=== PATIENT | female | born 1950 | race Caucasian/White ===

== ENCOUNTER 2017-04-10 06:12 | Inpatient (IN) | payer MEDICARE ==
[2017-04-07 12:25] LABS: BASOPHILS 0.6 %; BASOPHILS ABSOLUTE 0.05 10/3/uL (0.0-0.16); EOSINOPHILS 0.5 %; EOSINOPHILS ABSOLUTE 0.04 10/3/uL (0.0-0.53); HEMATOCRIT 39.4 % (36.0-48.0); IMMATURE GRANULOCYTES 0.1 %; IMMATURE GRANULOCYTES ABSOLUTE 0.01 10/3/uL (0.0-0.11); LYMPHOCYTES 44.3 %; LYMPHOCYTES ABSOLUTE 3.44 10/3/uL (0.67-4.30); MEAN CORPUSCULAR HEMOGLOB 30.4 pg (26.0-34.0); MEAN CORPUSCULAR VOLUME 92.1 fL (80-100); MEAN PLATELET VOLUME 10.3 fL (9.2-13.0); NEUTROPHILS 45.5 %; NEUTROPHILS ABSOLUTE 3.53 10/3/uL (2.02-8.40); PLATELET COUNT 323 10/3/uL (150-400); RBC DISTRIBUTION WIDTH 13.3 % (12.0-16.0); RED CELL COUNT 4.28 10/6/uL (4.0-5.6); WHITE BLOOD CELLS 7.8 10/3/uL (4.5-10.5)
[2017-04-07 12:27] LABS: MANUAL DIFF NO %
[2017-04-07 12:31] LABS: INTERNATIONAL NORMAL RATI 1.1 UNITS (-)
[2017-04-07 12:34] LABS: BUN (BLOOD UREA NITROGEN) 16 MG/DL (6-23); CALCIUM, SERUM 9.2 MG/DL (8.5-10.4); CHLORIDE, SERUM 107 MMOL/L (96-112); CREATININE 0.87 MG/DL (0.55-1.02); GFR AFRICAN AMERICAN 80 ML/MIN (>=60); GFR NON AFRICAN AMERICAN 69 ML/MIN (>=60); GLUCOSE, SERUM 82 MG/DL (60-99); SODIUM, SERUM 142 MMOL/L (135-148)
[2017-04-07 12:35] LABS: CO2 (CARBON DIOXIDE) 31 MMOL/L (24-34)
[2017-04-07 12:43] LABS: ASCORBIC ACID (UR NOT ORDER) NEG (NEG); BILIRUBIN, URINE NEGATIVE (NEG); KETONE, URINE NEGATIVE (NEG); LEUKOCYTE ESTERASE(NOT OR NEG (NEG); WBC (NOT ORDERED) (RFLEX) < 1 (0-5)
--- NOTE | ~2017-04-10 | OP ---
Record Of Operation [facility] [address] [facility] [place] [address] NAME: YORDAN PHILLIPS : 50 STATUS : ADM IN [facility]#: [id number] AGE: 67 ADM/REG DATE : 04/10/17 MR#: [id number] REPORT SERV DATE: 04/11/17 DICTATED BY: KEITH VIVAS DATE: 04/10/17 REPORT STATUS : Draft TRANSCRIBED BY: MODL DATE: 04/10/17 DATE OF PROCEDURE: 04/10/2017 SURGEON: Keith Vivas MD OPERATIVE DIRECTOR [employer]POR[employer] SALES: CHRISTOPHER Quispe COMPLICATIONS: None. ESTIMATED BLOOD LOSS: Less than 50 mL. DISPOSITION: Stable to recovery room. ANESTHESIA: General. PREOPERATIVE DIAGNOSES: 1. Left shoulder pain. 2. End-stage glenohumeral joint osteoarthritis, recalcitrant to conservative. POSTOPERATIVE DIAGNOSES: 1. Left shoulder pain. 2. End-stage glenohumeral joint osteoarthritis, recalcitrant to conservative. OPERATIVE PROCEDURE: 1. Left shoulder evaluation under anesthesia. 2. Left total shoulder arthroplasty using Biomet comprehensive total shoulder system. IMPLANTS USED: 1. Small 4 mm glenoid component with Regenerex post. 2. Size 7 mm mini humeral stem. 3. 46 x 18 mm modular head with E offset. OPERATIVE PROCEDURE: The diagnoses listed above as well as the recommended surgical procedure and risks and benefits thereof were discussed in full detail with Yordan Phillips and family on the morning of 04/10/2017. The patient and family asked appropriate questions which were answered to their satisfaction. An informed consent was signed, witnessed, and place in the chart. The left upper extremity was marked for confirmation. The patient was then wheeled to the operative arena where general endotracheal anesthesia was administered. The patient was placed in the beachchair positioner with all nonoperative extremities and head well padded and secured for the duration of the case. The patient received pre-operative antibiotics. A surgical pause was performed confirming both the correct patient as well as the proper surgical site and procedure. All present were in agreement. All standard anatomical landmarks as well as deltopectoral incision site were demarcated using a sterile marking pin. A 10-blade was used to create an 8 cm curvilinear incision just lateral to the coracoid process and directed towards the lateral insertion of the Record Of Operation [facility] [address] [place] [address] NAME: YORDAN PHILLIPS : 50 STATUS : ADM IN PAT#: [id number] AGE: 67 ADM/REG DATE : 04/10/17 MR#: [id number] REPORT SERV DATE: 04/11/17 DICTATED BY: KEITH VIVAS DATE: 04/10/17 REPORT STATUS : Draft TRANSCRIBED BY: LILLIAM DATE: 04/10/17 deltoid. The soft tissues were dissected down sharply to expose the deltopectoral fascia. The cephalic vein and the fat stripe were identified. The vein was retracted medially using careful sharp dissection. Next, a Carvajal Pal retractor was placed retracting the deltoid laterally and the pectoralis and coracobrachialis medially. The deltopectoral interval was the further exposed and the clavipectoral fascia was identified. Electrocautery was used to split the clavipectoral fascia exposing the anterior surface of the subscapularis. The lesser tuberosity was identified and the subscapularis was released 1 cm medial to the lesser tuberosity. The subscapularis was then tagged using Fiber Wire suture for later repair. The biceps tendon was then released and tagged as well for later tenodesis. The glenohumeral joint was then dislocated and the humeral head was brought out the operative wound very carefully. All osteophytes were then removed using a rongeur. Our starting awl was used with increasing sizes of diaphyseal reamers to obtain the best fit with excellent cortical chatter. The intramedullary cutting jig was then assembled and set with the appropriate version to meet the patient's normal anatomy. An oscillating saw was then used to make our proximal humeral cut. The proximal humeral portion of the head was then taken to the back table and measured and matched up with our trial implants. Next, the broaches were used in increasing sizes up to the size which fit most perfectly. The head protector was placed and the proximal humerus was retracted posteriorly and inferiorly out of the way of the glenoid. The labrum was then excised in full using electrocautery. All additional osteophytes and osteochondral loose bodies were removed. Next, the glenoid reamers were used to ream the glenoid down to a healthy bleeding bone surface. Our central peg hole was then drilled and our peg guide was used to drill the subsequent three peg holes. A coring drill was then used to core for the glenoid post. A trial glenoid was then placed and found to fit perfectly. Next, the cement was mixed and placed into the peg holes. A polyethylene glenoid was assembled with an appropriate post and tapped into place. An excellent scratch fit was obtained. Pulsatile lavage was used to irrigate this implant as well as the glenohumeral joint. The proximal humerus was again brought out the operative wound. Trial humeral head implants were then tested. The stem was implanted into the proximal humerus after copious irrigation with sterile saline. This was impacted into place. Our Versa Dial was set and then impacted on the back table with an excellent Tanner-Taper fit. This was then placed into the proximal humeral stem component and impacted into place with excellent security. At this juncture, the glenohumeral joint was then reduced once again. The glenohumeral joint alignment was near anatomic. Irrigation was used under pulsatile lavage to irrigate out the operative wound as well as the implants. Bone holes had been predrilled through the lesser tuberosity and four #2 Fiber Wire sutures were passed through this region. These were then taken through the soft tissues laterally and then tied down to our previously placed subscapularis sutures. An excellent repair of the subscapularis was obtained back down to the lesser tuberosity with no instability whatsoever. The biceps tendon was then tenodesed. The rotator interval was then closed also with #2 Fiber Wire suture. This layer was then again washed out with pulsatile lavage and copious amounts of sterile normal saline. The deltopectoral interval was closed with 2-0 undyed Vicryl. 2-0 undyed Vicryl was used to close the subcutaneous layer and a running Monocryl was placed below the skin. Steri-Strips were applied. Sterile dressing was then secured with Medipore tape. The patient was placed in an Ultra-Sling for post-operative immobilization. The patient was then awakened from anesthesia without difficulty and transferred to the post-anesthesia care unit in stable Record Of Operation [address] [place]. [address] NAME: YORDAN PHILLIPS : 50 STATUS : ADM IN [facility]#: [id number] AGE: 67 ADM/REG DATE : 04/10/17 MR#: [id number] REPORT SERV DATE: 04/11/17 DICTATED BY: KEITH VIVAS. DATE: 04/10/17 REPORT STATUS : Draft TRANSCRIBED BY: MODL DATE: 04/10/17 condition where the postoperative examination was within normal limits understanding that the interscalene block was still in effect. A lengthy discussion was held with the patient's family detailing all operative findings as well as procedures performed with all questions answered to their satisfaction. CCS/LILLIAM Keith Vivas M.D. / [id number] CC: Amadeo Kulkarni M.D.
[~2017-04-10 06:12] MED LIST: CALTRAT600 PO; CELEBREX2 PO; CHOLESTEROL OR; DETROLLA4 PO; FIBERCON PO; FISH OIL300 MG PO; MOBIC15 MG PO; NORCO1 TA2 PO; PCET PO; PREV30 PO; RELA5 PO; SURFAK PO; VICODINTAB PO
[2017-04-11 08:12] LABS: HEMATOCRIT 37.8 % (36.0-48.0); HEMOGLOBIN 12.4 g/dL (12.0-16.0)
[2017-04-11 08:33] LABS: CALCIUM, SERUM 9.1 MG/DL (8.5-10.4); CHLORIDE, SERUM 104 MMOL/L (96-112); CO2 (CARBON DIOXIDE) 27 MMOL/L (24-34); CREATININE 0.98 MG/DL (0.55-1.02); GFR AFRICAN AMERICAN 69 ML/MIN (>=60); GFR NON AFRICAN AMERICAN 60 ML/MIN (>=60); POTASSIUM, SERUM 4.3 MMOL/L (3.5-5.3); SODIUM, SERUM 141 MMOL/L (135-148)
[2017-04-11 08:40] LABS: BUN (BLOOD UREA NITROGEN) 7 MG/DL (6-23); GLUCOSE, SERUM 128 MG/DL (60-99)
[2017-04-11] MEDS ORDERED: ASA5GR PO (10:17)
[2017-04-11] MEDS ORDERED: D.O.S.100 MG PO (10:18)
[2017-04-11] MEDS ORDERED: OXYIR5 MG PO (10:21)
[2017-04-11] MEDS ORDERED: ZOFRAN ODT4 MG (10:23)
== END 2017-04-11 11:17 | disposition home or self-care (01) | DRG 483 ==
LOC: SDC/OF 06:12 → 1SO 14:16
PROVIDERS: Specialist
PROC: 0RRK0JZ Replacement of Left Shoulder Joint with Synthetic Substitute, Open Approach (ICD-10-PCS; principal; 2017-04-10 08:00)
DX: M19.012 Primary osteoarthritis, left shoulder (principal); E78.5 Hyperlipidemia, unspecified; K21.9 Gastro-esophageal reflux disease without esophagitis; Z79.891 Long term (current) use of opiate analgesic; Z79.899 Other long term (current) drug therapy; Z87.891 Personal history of nicotine dependence; Z88.0 Allergy status to penicillin; Z88.5 Allergy status to narcotic agent
CPT/HCPCS: 36415; 73030-LT; 80048; 81001; 85014; 85018; 85025; 85610; 86850; 86900; 86901; 87641; 88305; 88311; 93005; 97161-GP; A9270-GY; C1776; J0690; J1170; J2250; J2370; J2405; J2550; J2710; J3010